=== PATIENT | male | born 1990 | race Caucasian/White ===

== ENCOUNTER → 2021-09-27 | Emergency (ER) | payer OTHER ==
[~2021-09-27] VITALS: Ht 195.6 cm; Wt 88.5 kg
[~2021-09-27] MED LIST: FLEXERIL PO; MEDROLDOSEPACK PO
[2021-09-27 19:50] VITALS: BP 117/63
== END ==
LOC: M.ERS 17:31
DX: S16.1XXA Strain of muscle, fascia and tendon at neck level, initial encounter (principal); S40.012A Contusion of left shoulder, initial encounter; M25.511 Pain in right shoulder; M54.50 Low back pain, unspecified; R51.9 Headache, unspecified; R42 Dizziness and giddiness; V89.2XXA Person injured in unspecified motor-vehicle accident, traffic, initial encounter; Y93.I9 Activity, other involving external motion; Y92.415 Exit ramp or entrance ramp of street or highway as the place of occurrence of the external cause; Y99.8 Other external cause status